=== PATIENT | female | born 1995 ===

== ENCOUNTER 2020-11-10 18:54 | Outpatient (CLI) | payer MEDICAID ==
--- NOTE | 2020-11-12 13:46 | Ultrasound Report ---
PROCEDURE: OB Biophysical Profile INDICATIONS: POST DATES OUTSIDE/PRIOR DATING DATA: Last menstrual period (LMP): 01/23/2021. First dating scan (date and location): Not available]. Estimated date of delivery (ALIE) from first dating scan: Not available. TECHNIQUE: Real-time scanning was performed of the fetus, with image documentation and biometric sol surements. Biophysical profile was also obtained. Endovaginal scanning: Not needed COMPARISON: Not available. FINDINGS: General: A single living intrauterine gestation is present. Presentation: Cephalic Placenta: Placental position is anterior, without previa. Amniotic fluid index: 7 cm cm, lower limits of normal . Largest pocket is 2.9 cm. heart rate: 143 beats per minute. Maternal cervical canal: Not identified due to vertex presentation. Biophysical profile: Tone: 2 points. Movement: 2 points. Respiration: 2 points. Largest pocket of fluid: 2 points. Umbilical artery systolic/diastolic ratios measure 1.8 at the placenta, 1.9 at the mid cord and 2.6 a t the abdomen. IMPRESSION: Limited OB ultrasound at the request of the ordering health care provider. Biophysical profile is nor mal at 8 of 8 possible points. Amniotic fluid index appears low normal, 7.0 cm., Reviewed by: Dominik Graham MD on 11/12/2020 1:44 PM PDT Approved by: Dominik Graham MD on 11/12/2020 1:44 PM PDT Station ID: [id number]
== END 2020-11-10 18:55 | disposition home or self-care (01) ==
LOC: DI 18:54
PROVIDERS: ATTEND Midwife
DX: Z34.03 Encounter for supervision of normal first pregnancy, third trimester (principal)